=== PATIENT | female | born 1945 | race African-American/Black ===

== ENCOUNTER 2018-06-07 16:38 | Emergency (ER) | payer OTHER ==
[~2018-06-07] VITALS: Ht 162.6 cm; Wt 79.4 kg
[~2018-06-07 16:38] MED LIST: ASPIRIN EC81 M1 PO; FISH OIL 1,0001 EAC8 PO; PRILOSEC 20 MG20 MG PO; PRINIVIL20 MG PO; TOPROL XL25 MG PO; TOPROL XL50 MG PO
[2018-06-07] MEDS ORDERED: CHLORTHALIDONE25 MG PO (17:59)
[2018-06-07] MEDS ORDERED: NORVASC10 MG PO (17:59)
[2018-06-07] MEDS ORDERED: TOPROL XL100 MG PO (17:59)
[2018-06-07 18:00] LABS: HEMATOCRIT 36.2 % (37.0-47.0); MCHC 33.1 g/dL (28.0-37.0); MCV 90.7 fL (80.0-100.0); PLATELET COUNT 300 thou/uL (150-400); RBC 3.99 mil/uL (4.20-5.00); RDW 17.9 % (10.5-14.5); WBC 22.2 thou/uL (4.0-11.0)
[2018-06-07] MEDS ORDERED: ZYLOPRIM300 MG PO (18:00)
[2018-06-07] MEDS ORDERED: COZAAR 25 MG TA25 M1 PO (18:01)
[2018-06-07] MEDS ORDERED: SPIRONOLACTONE25 M1 PO (18:01)
[2018-06-07 18:17] LABS: ANION GAP 11 mmol/L (7-16); BUN 55 mg/dL (7-18); CALCIUM 9.6 mg/dL (8.5-10.1); CHLORIDE 105 mmol/L (98-107); CO2 23 mmol/L (21-32); CREATININE 1.7 mg/dL (0.6-1.0); GLUCOSE 141 mg/dL (74-106); POTASSIUM 4.8 mmol/L (3.5-5.1); SODIUM 139 mmol/L (136-145)
[2018-06-07 18:23] LABS: ABSOLUTE NEUTROPHILS 15.8 thou/uL (1.4-8.2); ANISOCYTOSIS 1+
[2018-06-07 18:27] LABS: ALBUMIN 3.1 g/dL (3.4-5.0); LIPASE 341 U/L (73-393); SGOT 16 U/L (15-37); SGPT 13 U/L (30-65); TOTAL BILIRUBIN 0.2 mg/dL (<0.1-1.0); TOTAL PROTEIN 6.7 g/dL (6.4-8.2); TROPONIN-I <0.06 ng/mL (<0.06)
[2018-06-07 18:58] LABS: URINE BILIRUBIN NEGATIVE (Negative); URINE BLOOD NEGATIVE (Negative); URINE CLARITY CLEAR; URINE COLOR YELLOW; URINE GLUCOSE-RANDOM* NEGATIVE (Negative); URINE KETONES NEGATIVE (Negative); URINE LEUKOCYTES-REFLEX NEGATIVE (Negative); URINE NITRITE-REFLEX NEGATIVE (Negative); URINE PROTEIN (DIPSTICK) NEGATIVE (Negative); URINE UROBILINOGEN 0.2 E.U./dl (0.2-1.0)
[2018-06-07 22:17] VITALS: BP 121/47
--- NOTE | 2018-06-08 07:56 | EKG ---
[address] [place] [address] ELECTROCARDIOGRAM REPORT Name: LEE RHODES Room #: DEP HÉCTOR Whitt#: [id number] ������������������ Admission: 06/07/18 ������������������ Attend Phys: Discharge: 06/07/18 ������������������ Date of : 41 Report #: [id number] ����������������������������������������������������������������� [id number] THIS REPORT FOR: //name// [facility] ED Test Date: 2018-06-07 Test Time: 17:49:10 Pat Name: LEE RHODES Department: Room: Gender: F Applications Developer: dino : 1945 Requested By: Radha De Paz Order Number: [id number] MD: Pj Monzon Measurements Intervals [place] Rate: 65 P: 53 VT: 125 QRS: 6 QRSD: 91 T: 29 QT: 372 QTc: 387 Interpretive Statements Sinus rhythm Normal tracing Compared to ECG 05/01/2011 14:24:07 No significant change was found Electronically Signed On 06-08-2018 7:56:21 CDT by Pj Monzon [email or web address] ��������������������������������������������� <ELECTRONICALLY SIGNED> ���������������������������������������� By: Pj Monzon MD, [facility] ��������������������������������������������� 06/08/18 [id number] Pj Monzon MD, FACC /EPI
== END 2018-06-07 22:18 | disposition home or self-care (01) ==
LOC: ER 16:38
PROVIDERS: Nurse Practitioner Family
DX: E86.0 Dehydration (principal); R42 Dizziness and giddiness; D72.829 Elevated white blood cell count, unspecified; K21.9 Gastro-esophageal reflux disease without esophagitis; I12.9 Hypertensive chronic kidney disease with stage 1 through stage 4 chronic kidney disease, or unspecified chronic kidney disease; N18.9 Chronic kidney disease, unspecified; F17.210 Nicotine dependence, cigarettes, uncomplicated; Z88.8 Allergy status to other drugs, medicaments and biological substances